=== PATIENT | male | born 1960 | race Caucasian/White ===

== ENCOUNTER 2024-06-08 17:47 | Emergency (ER) | payer BC, SELFPAY ==
--- NOTE | ~2024-06-08 | XR_ITS ---
[id number] Ordering provider: Cara Mata APRN History: . slipped fell, lateral/anterior lower rib pain . Comparison: None. FINDINGS: BONES: Fracture of the right seventh and ninth ribs. MEDIASTINUM: The cardiac silhouette is not enlarged. LUNGS: No infiltrates, effusions or pneumothorax. OTHER: No free air under the diaphragm. IMPRESSION: 1. Fracture of the right seventh and ninth ribs. 2. No acute cardiopulmonary findings. Reviewed, dictated and finalized at location A.
--- NOTE | 2024-06-08 17:49 | ED_ITS ---
HPI - General Adult General Chief complaint: Extremity Injury, Upper Stated complaint: RT Rib Pain Time Seen by Provider: 06/08/24 17:58 Source: patient, RN notes reviewed and old records reviewed Mode of arrival: ambulatory Limitations: no limitations History of Present Illness HPI narrative: 64-year-old male presents to the [facility] with right lateral anterior rib pain. Patient states that he was washing up getting out of the tub when he slipped and fell landing with his ribs against the edge the tub. Patient denies any chest pain. Denies shortness breath. Discomfort with deep breathing. No bruising or swelling noted. Happened approximately 1430 this afternoon Related Data Home Medications ?Medication ?Instructions ?Recorded ?Confirmed ?Last Taken ?Type atorvastatin 40 mg tablet mg 06/08/24 Unknown History lisinopril 40 mg tablet mg 06/08/24 Unknown History tamsulosin 0.4 mg capsule mg PO 06/08/24 Unknown History Allergies Allergy/AdvReac Type Severity Reaction Status Date / Time Penicillins Allergy Intermediate Hives Verified 06/08/24 18:04 Sulfa (Sulfonamide Allergy Intermediate Hives Verified 06/08/24 18:04 Antibiotics) Review of Systems 2 Review of Systems: All systems reviewed & are unremarkable except as noted in HPI and below Constitutional: Constitutional: Reports no additional constitutional complaints ENT: Reports system reviewed and no additional complaints, except as documented Cardiovascular: Cardiovascular: Reports no additional cardiovascular complaints, Denies chest pain and Denies dyspnea Respiratory: Respiratory: Reports no additional respiratory complaints, Denies chest congestion, Denies cough and Denies dyspnea Musculoskeletal: Musculoskeletal: Reports as per HPI Integumentary/Breasts: Skin/Breast: Reports system reviewed and no additional complaints, except as docu PMFSH Comments At the time of my signature, I reviewed and agree with the nursing past medical, surgical, social, and family history. There is no relevant family history pertinent to the patient complaint. Exam 2 Const: General: cooperative, healthy appearing, comfortable, no acute distress, well developed, alert and well nourished Nutritional Appearance: w ell nourished Orientation/consciousness: patient oriented x3 Limitations: no limitations HENMT: Head: normal to inspection Eyes: General: appearance normal, both eyes and all related structures A lignment and Position: alignment normal Neck: Neck: normal visual inspection, full ROM, no lymphadenopathy and no meningeal signs Chest: Chest palpation & inspection: normal inspection of the chest Chest/axillae images: 1. Tenderness to palpation. No bruising, swelling, erythema noted Resp: Effort & Inspection: normal respiratory effort and able to speak in complete sentences Auscultation: clear to auscultation bilaterally, no crackles, no rales, no rhonchi and no wheezes Cardio: Rate: regular rate Skin: General skin exam: normal color and no rashes or lesions noted Neuro: General: patient oriented x3, gait normal, moves all extremities and no meningeal signs Cognition (Neuro): normal cognition Speech: normal speech Gait exam (Neuro): Normal gait present Extrem: General: normal to inspection, full ROM, capillary refill normal and normal gait Psych: Appearance: grossly normal and well kempt Mental Status: mental status grossly normal Speech and movement: Normal speech and movement present and Clear speech present Affect: normal affect Attitude: cooperative Course Course Level of Care: Express Care Visit Vital Signs Vital signs: Vital Signs Temperature 98.1 F 06/08/24 18:00 Pulse Rate 66 06/08/24 18:00 Respiratory Rate 24 H 06/08/24 18:00 Blood Pressure 126/80 06/08/24 18:00 Pulse Oximetry 99 06/08/24 18:00 Oxygen Delivery Room Air 06/08/24 18:00 Temperature 98.1 F 06/08/24 18:00 Pulse Rate 66 06/08/24 18:00 Respiratory Rate 24 H 06/08/24 18:00 Blood Pressure 126/80 06/08/24 18:00 Pulse Oximetry 99 06/08/24 18:00 Oxygen Delivery Room Air 06/08/24 18:00 Reviewed Medical Decision Making MDM Narrative Medical decision making narrative: Patient presents with right rib pain post fall. X-ray showed fracture. Patient in no acute distress, vitals stable. Patient appropriate for outpatient treatment and follow-up Discharge instructions reviewed with patient, as well as provided in writing per nursing staff. The instructions also include specific and strict return/GO TO THE ER as well as f/u information. All questions have been answered, and the patient deny any further questions with discharge and discharge plan. Some parts of this dictation were generated by voice recognition software and may contain typographical and/or grammatical inaccuracies. Differential Diagnosis Differential Diagnosis: Rib fracture, rib contusion Medical Records Medical records reviewed: Yes I reviewed the external patient's medical records. Vital Signs Vital Signs: Vital Signs Temperature 98.1 F 06/08/24 18:00 Pulse Rate 66 06/08/24 18:00 Respiratory Rate 24 H 06/08/24 18:00 Blood Pressure 126/80 06/08/24 18:00 Pulse Oximetry 99 06/08/24 18:00 Oxygen Delivery Room Air 06/08/24 18:00 Temperature 98.1 F 06/08/24 18:00 Pulse Rate 66 06/08/24 18:00 Respiratory Rate 24 H 06/08/24 18:00 Blood Pressure 126/80 06/08/24 18:00 Pulse Oximetry 99 06/08/24 18:00 Oxygen Delivery Room Air 06/08/24 18:00 Reviewed Lab Data Lab results reviewed: Yes I reviewed the patient's lab results. Labs: Reviewed Imaging Data Radiologist's impression: [id number] Ordering provider: Cara Mata APRN History: . slipped fell, lateral/anterior lower rib pain . Comparison: None. FINDINGS: BONES: Fracture of the right seventh and ninth ribs. MEDIASTINUM: The cardiac silhouette is not enlarged. LUNGS: No infiltrates, effusions or pneumothorax. OTHER: No free air under the diaphragm. IMPRESSION: 1. Fracture of the right seventh and ninth ribs. 2. No acute cardiopulmonary findings. Critical Care Time Critical Care Time Critical Care Time: No Discharge Plan Discharge Clinical Impression: Fracture of ribs, two, closed Qualifiers: Encounter type: initial encounter Laterality: right Qualified Code(s): S22.41XA - Multiple fractures of ribs, right side, initial encounter for closed fracture Patient Disposition: Home Condition: Stable Instructions: Antibiotic Form, Rib Fracture (ED) Additional Instructions: Today your x-ray showed on your right 7th and on your 9th rib a fracture It is important to take 10 deep breaths every hour while awake. Follow-up with your primary care provider this week New or worsening symptoms go directly to the emergency room Patient Language: Cymro Prescriptions: New hydrocodone-acetaminophen 5-325 mg tablet 1 tablet PO Q6H PRN (Reason: pain) Qty: 10 0RF No Action atorvastatin 40 mg tablet tamsulosin 0.4 mg capsule PO lisinopril 40 mg tablet Follow-up/Referrals: Cymro,Giovanni Alexander MD [Primary Care Provider] - 2 Weeks ([facility] follow up rib fracture) Stand Alone Forms: Work/School Release IP Time of Disposition: 18:54
--- OUTSIDE RECORDS SUMMARY | 2024-06-08 17:55 | XMS_ITS | Clinical Summary ---
Author Organization [facility] Address [address] [place] [address] Care Team Providers Care Vp & General Counsel Name Role Phone Giovanni Crespo MD Primary Care Provider [phone] Allergies Active Allergy Reactions Criticality Noted Date Comments Hydrochlorothiazide Unknown 12/21/2019 Niacin Unknown 12/21/2019 Penicillins Unknown 12/21/2019 Sulfa Antibiotics Unknown 12/21/2019 Medications aspirin EC (ASPIRIN EC) 81 MG tablet Take 81 mg by mouth daily. Active lisinopril 40 MG tablet Take 40 mg by mouth daily. Active atorvastatin 40 MG tablet Take 40 mg by mouth nightly at bedtime. Active methylPREDNISol one, NIRMAL, (MEDROL) 4 MG tablet Take 1 tablet (4 mg total) by mouth daily. Follow package directions 1 each 0 Active Family History Medical History Relation Comments CHF Father Cataract Father Heart Disease Father MA Father Aneurysm Mother CHF Mother Cancer Mother Diabetes Mother Heart Disease Mother Relation Status Comments Father Alive Mother Alive Social History Tobacco Use Types Packs/Day Years Used Date Smoking Tobacco: Never Smokeless Tobacco: Never Alcohol Use Standard Drinks/Week Comments Not Currently 0 (1 standard drink = 0.6 oz pur e alcohol) rare Sex and Gender Information Value Date Recorded Sex Assigned at Not on file Legal Sex Male 8:34 PM CDT Gender Identity Not on file Sexual Orientation Not on file Last Filed Vital Signs Vital Sign Reading Time Taken Comments Blood Pressure 129/81 02/02/2020 1:40 PM SEMICONDUCTOR PACKAGES SEALER Pulse 73 02/02/2020 1:40 PM SEMICOND[employer]CTOR PACK[employer] SEALER Temperature 36.8 C (98.2 F) 02/02/2020 1:40 PM SEMICOND[employer]CTOR PACK[employer] SEALER Respiratory Rate 16 02/02/2020 1:40 PM SEMICONDUCTOR PACKAGES SEALER Oxygen Saturation 97% 02/02/2020 1:40 PM SEMICONDUCTOR PACKAGES SEALER Inhaled Oxygen Concentration - - Weight 86.2 kg (190 lb) 02/02/2020 1:40 PM SEMICONDUCTOR PACK[employer] SEALER Height 182.9 cm (6') 02/02/2020 1:40 PM SEMICOND[employer]CTOR PACK[employer] SEALER Body Mass Index 25.77 02/02/2020 1:40 PM SEMICOND[employer]CTOR PACK[employer] SEALER Plan of Treatment Health Maintenance Due Date Last Done Comments Hepatitis C 1977 DTaP, Tdap and Td Vaccines ( 1 - Tdap) 1978 Pneumococcal Vaccine: 50+ Years (1 of 1 - PCV) 2009 Zoster Vaccines (2 of 2) 01/18/2018 11/23/2017 COVID-19 Vaccine ( - 2023-2 5 season) 2023 Colorectal Cancer Screening Colonoscopy (10 Years) 12/31/2029 01/01/2020, 01/01/2020 RSV Immunization or 60+ Years (1 - 1-dose 75+ series) 2034 Meningococcal B Vaccine Aged Out No l onger eligible based on patient's age to complete this topic Meningococcal Vaccine Aged Out No jeanie dannielle eligible based on patient's age to complete this topic RSV Immunizations Under 20 Months Aged Out No longer eligible b ased on patient's age to complete this topic Medical Devices Implanted Type Area Assistant Press Operator Device Identifier Shelf Expiration Date Model / Serial / Lot Knee Components Knee Components Procedures Procedure Name Priority Date/Time Associated Diagnosis Comments COLONOSCOPY Routine 01/01/2020 10:51 AM SEMICONDUCTOR PACKAGES SEALER from Last 3 Months or Most Recently Relevant to Health Maintenance Results * Colonoscopy (01/01/2020 10:51 AM SEMICONDUCTOR PACKAGES SEALER) Narrative Christopher Rodrigues MD - 01/01/2020 10:51 AM SEMICONDUCTOR PACKAGES SEALER Christopher Rodrigues MD 01/01/2020 11:27 AM CHRISTOPHER RODRIGUES MD, FACG, FACP COLONOSCOPY This is a 59-year-old male with history of HTN, HLD, hand surgery and right knee replacement who now presents for colonoscopy for personal history of adenomatous colon polyps and family history of colon cancer in his mother. GI review of systems is negative. No endocarditis risk factors. Allergies Allergen Reactions Hctz [Hydrochlorothiazide] Unknown Niacin Unknown Penicillins Unknown Sulfa Antibiotics Unknown Medications: see list. Family history: negative for colon cancer. VITALS: Stable. LUNGS: Clear. HEART: Regular. S1 and S2 normal. ABDOMEN: NABS. NT. The procedure of colonoscopy, its indications, alternatives of barium studies and risks including perforation, bleeding, infection, reaction to medication as well as the possible need for blood or surgery were discussed with the patient prior to the procedure. The patient voices understanding, agrees to proceed and provides informed consent. COLONOSCOPY INDICATION: Personal history of colon polyps and family history of colon cancer. POST-OP: One polyp removed. Mild diverticulosis. SEDATION: Per Anesthesia PREP: Good. With the patient in the left lateral decubitus position, the Olympus [id number] colonoscope was introduced into the rectum and advanced easily to the Terminal Ileum. Careful inspection of the mucosa was made upon insertion and withdrawal of the endoscope. FINDINGS: Terminal ileum: distal 5 cm normal. Cecum, ascending colon, descending colon and rectum including retroflexion normal. Transverse colon: 7 mm sessile polyp removed with cold biopsy forceps. Sigmoid colon: mild diverticulosis. No masses, AVMs or colitis seen. No complications, blood loss or implants. ASSESSMENT AND PLAN: A. Personal history of colon polyps and family history of colon cancer: - One polyp removed - If no cancer repeat colonoscopy in five years B. Mild diverticulosis: observe. Thank you for allowing me to care for your patient. He will follow-up with Dr. Crespo as needed. Christopher Rodrigues M.D. Christopher Rodrigues MD GI PROCEDURE ORDERABLES Fin al Result from Last 3 Months or Most Recently Relevant to Health Maintenance Insurance [facility] Care Teams Vp & General Counsel Relationship Specialty Start Date End Date Giovanni Crespo MD [address] [place] [address] PCP - General INTERNAL MEDICINE 05/15/18
--- OUTSIDE RECORDS SUMMARY | 2024-06-08 17:55 | XMS_ITS | Encounter Summary ---
Author Organization [facility] Address [address] [place] [address] Care Team Providers Care Power Washer Name Role Phone Giovanni Crespo MD Primary Care Provider [phone] Encounter Details Date Type Department Care Team (Late st Contact Info) Description 01/01/2020 Prep for Procedure [facility] [place], [place] [id number] Christopher Rodrigues MD [address] [id number] Social History Tobacco Use Types Packs/Day Years Used Date Smoking Tobacco: Never Smokeless Tobacco: Never Alcohol Use Standard Drinks/Week Comments Not Currently 0 (1 standard drink = 0.6 oz pur e alcohol) Sex and Gender Information Value Date Recorded Sex Assigned at Not on file Legal Sex Male 8:34 PM CDT Gender Identity Not on file Sexual Orientation Not on file COVID-19 Exposure Response Date Recorded In the last month, have you been in contact with someone who was confirmed or suspected to have Coronavirus / COVID-19? No / Unsure 01/01/2020 10:00 AM BRINE MAKER documented as of this encounter Plan of Treatment Not on file documented as of this encounter Results * PRE-SURGICAL/PRE-PROCEDURE CORONAVIRUS (COVID 19) (12/29/2019 11:50 AM BRINE MAKER) CORONAVIRUS SARS COV 2 PCR (RESP) NOT DETECTED NOT DETECTED 12/30/2019 6:41 PM [employer] [facility] Comment: A Not Detected (negative) test result for this test means that SARS- CoV-2 RNA was not present in the specimen above the limit of detection. A negative result does not rule out the possibility of COVID-19 and should not be used as the sole basis for treatment or patient management decisions. If COVID-19 is still suspected, based on exposure history together with other clinical findings, re-testing should be considered in consultation with public health authorities. Laboratory test results should always be considered in the context of clinical observations and epidemiological data in making a final diagnosis and patient management decisions. Please review the Fact Sheets and FDA authorized labeling available for health care providers and patients using the following websites: https://www.dentaZOOM.[employer]/home/Covid-19/HCP/QuestIVD/fact- sheet.html https://www.[employer]entaZOOM.[employer]/home/Covid-19/Patients/ QuestIVD/fact-sheet.html This test has been authorized by the FDA under an Emergency Use Authorization (EUA) for use by authorized laboratories. Due to the current public health emergency, [employer] is receiving a high volume of samples from a wide variety of swabs and media for COVID-19 testing. In order to serve patients during this public health crisis, samples from appropriate clinical sources are being tested. Negative test results derived from specimens received in non-commercially manufactured viral collection and transport media, or in media and sample collection kits not yet authorized by FDA for COVID-19 testing should be cautiously evaluated and the patient potentially subjected to extra precautions such as additional clinical monitoring, including collection of an additional specimen. Methodology: Nucleic Acid Amplification Test (NAAT) includes RT-PCR or TMA Additional information about COVID-19 can be found at the [employer] website: www.[employer]/Covid19. Test performed at [employer] [facility] [address] [place] [address] Director: MARY ANN FRAZIER DO,MPH FIRST TEST NO 12/29/2019 2:02 PM [facility] EMPLOYED IN HEALTHCARE NO 12/29/2019 2:02 PM [facility] SYMPTOMATIC DEFINED BY CDC NO 12/29/2019 2:02 PM BRINE MAKER [facility] DATE OF SYMPTOM ONSET UNKNOWN 12/29/2019 2:37 PM BRINE MAKER [facility] HOSPITALIZATION STATUS NO 12/29/2019 2:02 PM BRINE MAKER [facility] PATIENT IN ICU NO 12/29/2019 2:02 PM BRINE MAKER [facility] RESIDENT OF CONGREGATE CARE NO 12/29/2019 2:02 PM BRINE MAKER [facility] NO 12/29/2019 2:37 PM BRINE MAKER [facility] PATIENT'S RACE WHITE OR 12/29/2019 2:02 PM BRINE MAKER [facility] ETHNICITY NONHISPANIC 12/29/2019 2:02 PM BRINE MAKER [facility] SOURCE (QST) NASOPHARYNGEAL SWAB 12/29/2019 2:02 PM BRINE MAKER [facility] NASOPHARYNGEAL SWAB / Unknown 12/29/2019 11:50 AM BRINE MAKER us Christopher Rodrigues MD MICROBIOLOGY - [facility] MIMI ALMAZAN Final Result [facility] [address] [place] [address], [place] [address], documented in this encounter Visit Diagnoses Diagnosis History of colon polyps- Primary Personal history of colonic polyps documented in this encounter Care Teams Power Washer Relationship Specialty Start Date End Date Giovanni Crespo MD [address] [place] [id number] PCP - General INTERNAL MEDICINE 05/15/18 documented as of this encounter
--- OUTSIDE RECORDS SUMMARY | 2024-06-08 17:57 | XMS_ITS | Clinical Summary ---
Author Organization [facility] Address [address] [place] [address] Care Team Providers Care Military Pilot Name Role Phone Giovanni Crespo MD Primary Care Provider [phone] Source Comments [facility],non-owned Affiliates and Associated Physician Practices is amultiple site organization consisting of ambulatory clinics and hospital sitesin [place], [place], [place] and [place]. This disclosure is being madepursuant to the Care Everywhere program and may not contain all information available regarding this patient. Last updated 17.[facility] Allergies Active Allergy Reactions Criticality Noted Date Comments Penicillins Rash,Unknown Medium 02/11/2009 Sulfa Antibiotics Unknown 12/21/2019 Medications * Be aware that medications may not be up to date on this document. Alwaysverify current medications with the patient. atorvastatin (Lipitor) 40 MG tablet Take 1 (one) tablet by mouth once daily Active lisinopril (Prinivil; Zestril) 40 MG tablet Take 1 (one) tablet by mouth once daily Active tamsulosin (Flomax) 0.4 MG capsule Take 2 (two) capsules by mouth every evening Active cyanocobalamin 100 MCG tablet Take 1 (one) tablet by mouth once daily Active aspirin EC (Ecotrin) 81 MG tablet Take 1 (one) tablet by mouth once daily Active Social History Tobacco Use Types Packs/Day Years Used Date Smoking Tobacco: Never Smokeless Tobacco: Never Tobacco Cessation:Counseling Given: Not Answered Alcohol Use Standard Drinks/Week Comments Yes 0 (1 standard drink = 0.6 oz pur e alcohol) seldom Sex and Gender Information Value Date Recorded Sex Assigned at Not on file Legal Sex Male 2:36 PM CDT Gender Identity Not on file Sexual Orientation Not on file Last Filed Vital Signs Vital Sign Reading Time Taken Comments Blood Pressure 112/75 07/13/2023 9:47 AM CDT Pulse 64 07/13/2023 9:47 AM CDT Temperature - - Respiratory Rate - - Oxygen Saturation 96% 07/13/2023 9:47 AM CDT Inhaled Oxygen Concentration - - Weight 92.1 kg (203 lb) 07/13/2023 9:47 AM CDT Height 180.3 cm (5' 11 ) 07/13/2023 9:47 AM CDT Body Mass Index 28.31 07/13/2023 9:47 AM CDT Plan of Treatment Health Maintenance Due Date Last Done Comments COLOGUARD (AGES 45-75) - COL ON CA SCREENING 1959 COLON MONITORING 1959 COLONOSCOPY - COLON CA SCREENING 1959 CT COLONOGRAPHY - COLON CA SCREENING 1959 Colorectal Cancer Screening 1959 FIT - COLON CA SCREENING 1959 FLEX SIG - COLON CA SCREENING 1959 HIV SCREENING 1974 HEPATITIS C SCREENING 03/29/1977 DTAP/TDAP/TD VACCINES (1 - Tdap) 1978 PNEUMOCOCCAL VACCINE 50+ (1 of 1 - PCV) 2009 ZOSTER VACCINE (1 of 2) 2009 COVID-19 VACCINE ( - 2023-2 5 season) 2023 DEPRESSION SCREENING 02/22/2024 INFLUENZA VACCINE (Season Ended) 2024 11/09/2022, 12/18/2021 SCREENING FOR DIABETES 11/22/2026 11/23/2023 Respiratory Syncytial Virus (RSV) Vaccine Pt: or over 60 yrs (1 - 1-dose 75+ series) 2034 HEPATITIS B VACCINE Aged Out No longe r eligible based on patient's age to complete this topic HIB VACCINE Aged Out No longer eligi ble based on patient's age to complete this topic HPV VACCINE Aged Out No longer eligi ble based on patient's age to complete this topic MENINGOCOCCAL (Group B) VACCINE SHARED DECISION-MAKING Aged Out No longer eligible based on patient's age to complete this topic MENINGOCOCCAL GROUPS A/C/Y/W VACCINE Aged Out No longer eligible b ased on patient's age to complete this topic Procedures Procedure Name Priority Date/Time Associated Diagnosis Comments HEMOGLOBIN A1C (EXTERNAL RESULT ENTRY) Routine 11/23/2023 from Last 3 Months or Most Recently Relevant to Health Maintenance Results * (ABNORMAL) HEMOGLOBIN A1C (EXTERNAL RESULT ENTRY) (11/23/2023) Hemoglobin A1c (EXTERNAL RESULT) 6.8(H) % OUTSIDE REFERENCE LAB Comment:[employer] (divorce mediator) Blood BLOOD SPECIMEN / Unknown 11/23/2023 us Historical Provider MD LAB - CHEMISTRY ORDERABLE S Final Result OUT[facility]IDE REFERENCE LAB from Last 3 Months or Most Recently Relevant to Health [place] [address] [facility] Care Teams Military Pilot Relationship Specialty Start Date End Date Giovanni Crespo MD [address] [place] [phone] PCP - General Internal Medicine 06/08/23
[2024-06-08 18:00] VITALS: BP 126/80; PULSE 66; RESP 24; TEMP 36.7; O2SAT 99
== END 2024-06-08 19:03 | disposition home or self-care (01) ==
PROVIDERS: Emergency Provider Nurse Practitioner; PCP Internal Medicine
DX: S22.41XA Multiple fractures of ribs, right side, initial encounter for closed fracture (principal); Z79.899 Other long term (current) drug therapy; W18.2XXA Fall in (into) shower or empty bathtub, initial encounter
CPT/HCPCS: 71101; 99203; G0463